=== PATIENT | male | born 1980 | race Caucasian/White ===

== ENCOUNTER 2020-09-26 08:01 | Emergency (ER) | payer OTHER ==
[~2020-09-26] VITALS: Ht 175.3 cm; Wt 97.0 kg
[2020-09-26 08:04] VITALS: BP 148/89
[2020-09-26] MEDS ORDERED: BACITRACIN ZINC OINT UDPKT TOP ONE (08:45)
[2020-09-26] MEDS ORDERED: TETANUS, DIPHTHERIA, PERTUSSIS VAC/PF 0.5ML (>7YR OLD) IM ONE (08:45)
[2020-09-26] MEDS ORDERED: LIDOCAINE 1%/EPI 1:100,000 10 ML VIAL IJ ONE (08:45)
== END 2020-09-26 10:24 | disposition home or self-care (01) ==
LOC: ER 08:01
DX: S61.012A Laceration without foreign body of left thumb without damage to nail, initial encounter (principal); X58.XXXA Exposure to other specified factors, initial encounter; Y93.89 Activity, other specified; Y92.89 Other specified places as the place of occurrence of the external cause; Y99.8 Other external cause status
CPT/HCPCS: 90715; 99283; J3490; 99281